=== PATIENT | male | born 1990 | race Caucasian/White ===

== ENCOUNTER 2017-12-23 09:16 | Emergency (ER) | payer OTHER ==
[2017-12-23] MEDS ORDERED: Naproxen TAB* 250 MG PO ONE (10:03)
[2017-12-23] MEDS ORDERED: Metaxalone TAB* 800 MG PO ONE (10:03)
[2017-12-23 10:50] VITALS: BP 130/86
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
== END 2017-12-23 10:52 | disposition home or self-care (01) ==
LOC: ED 09:16
DX: S39.012A Strain of muscle, fascia and tendon of lower back, initial encounter (principal); M54.5 Low back pain; V43.53XA Car driver injured in collision with pick-up truck in traffic accident, initial encounter; Y92.9 Unspecified place or not applicable
CPT/HCPCS: 99281; A9270-GY